=== PATIENT | male | born 1985 | race Caucasian/White ===

== ENCOUNTER 2020-06-14 07:06 | Emergency (ER) | payer OTHER ==
[~2020-06-14] VITALS: Ht 177.8 cm; Wt 65.9 kg
--- NOTE | 2020-06-14 07:51 | RAD ---
INDICATION: Testicular pain. COMPARISON: None. TECHNIQUE: Grayscale, color and spectral doppler ultrasound images obtained of the scrotum. FINDINGS: Right Testicle: 47 x 29 x 20 mm. Vascular flow is identified. Left Testicle: 44 x 28 x 21 mm. Vascular flow is identified. 25 x 18 x 12 mm right epididymal cyst. IMPRESSION: * Vascular flow is identified to the bilateral testicles. * Right epididymis cyst. Electronically signed by: Boogie Mcbride MD (06/14/2020 7:49 AM) [id number]
[2020-06-14 07:55] LABS: BACTERIA,URINE 0 /HPF (0-FEW); BILIRUBIN,URINE SMALL (NEG); CLARITY,URINE HAZY; COLOR,URINE AMBER; GLUCOSE,URINE NEG (NEG); NITRITE,URINE NEG (NEG); RBC,URINE >40 /HPF (0-2); UROBILINOGEN,URINE 0.2 mg/dL (0.2 mg/dL); WBC,URINE OCC /HPF (0-4)
--- NOTE | 2020-06-14 08:02 | PHYS DOC ---
Past History Past Medical History: No Pertinent History Past Surgical History: Other Additional Past Surgical Histo: vasectomy Additional Smoking Information: 1/2 pack/day Alcohol Use: Rarely General Adult EDM: Chief Complaint: TESTICULAR PAIN OR INJURY HPI: HPI: Patient is a 35 year old male who presents with left-sided testicular pain. Patient has noted hematuria since Friday but has not been in pain until this morning--prompting him to come to the ED today (he drove himself). [place] are positive for hematuria. He has been drinking copious amounts of water, and has taken OTC pain medication. Denies any penile or back pain, and has no pain with urination. Says that he has a left throbbing testicular pain that radiates to his abdomen and is worse depending on sitting position. He has had no new sexual partners recently. Reports having a "disc issue"in his back and says that he lives with 3/10 back pain. Reports current pain as 5/10. He has a history of passing a kidney stone at age 15. Denies fever, chills, any other sick symptoms at this time. Review of Systems: Review of Systems: Constitutional: Denies fever or chills Eyes: Denies redness or eye pain HENT: Denies nasal congestion or sore throat Respiratory: Denies cough or shortness of breath Cardiovascular: Denies chest pain or palpitations GI: Denies abdominal pain, nausea, or vomiting : Denies dysuria. Reports hematuria. Reports left testicular pain. Musculoskeletal: Denies back pain or joint pain Integument: Denies rash or skin lesions Neurologic: Denies headache, focal weakness or sensory changes Complete systems were reviewed and found to be within normal limits, except as documented in this note. Allergies: Allergies: Allergies Coded Allergies Type Severity Reaction Last Updated Verified No Known Drug Allergies 06/14/20 No Physical Exam: PE: Constitutional: Well developed, well nourished, no acute distress, non-toxic appearance HENT: Normocephalic, atraumatic Eyes: PERRL, EOMI, conjunctiva normal, no discharge Neck: Normal range of motion, no tenderness, supple Lungs & Thorax: No respiratory distress, equal chest rise and fall Abdomen: Soft, no tenderness Skin: Warm, dry, no erythema, no rash Back: No tenderness, no CVA tenderness Extremities: No tenderness, ROM intact, no edema Neurologic: Alert and oriented X 3, normal motor function, normal sensory function, no focal deficits noted Psychologic: Affect normal, judgment normal Current Patient Data: Vital Signs: Vital Signs Date Time Temp Pulse Resp B/P (MAP) Pulse Ox O2 Delivery O2 Flow Rate FiO2 06/14/20 07:08 97.7 66 16 125/64 (84) 95 EKG: EKG: [] Radiology/Procedures: Radiology/Procedures: PROCEDURE: TESTICULAR/SCROTUM INDICATION: Testicular pain. COMPARISON: None. TECHNIQUE: Grayscale, color and spectral doppler ultrasound images obtained of the scrotum. FINDINGS: Right Testicle: 47 x 29 x 20 mm. Vascular flow is identified. Left Testicle: 44 x 28 x 21 mm. Vascular flow is identified. 25 x 18 x 12 mm right epididymal cyst. IMPRESSION: * Vascular flow is identified to the bilateral testicles. * Right epididymis cyst. Electronically signed by: Boogie Mcbride MD (06/14/2020 7:49 AM) [id number] PROCEDURE: CT ABDOMEN PELVIS WO CONTRAST INDICATION: Reason: hematuria, eval for kidney stone / Spl. Instructions: / History: . COMPARISON: None. TECHNIQUE: Axial CT images obtained through the abdomen and pelvis without contrast. One or more of the following individualized dose reduction techniques were utilized for this examination: 1. Automated exposure control; 2. Adjustment of the mA and/or kV according to patient size; 3. Use of iterative reconstruction technique. FINDINGS: Abdominal aorta is not aneurysmal. No intrahepatic bile duct dilation. Limited assessment of the pancreas without contrast. Spleen is unremarkable. Mild left-sided hydronephrosis and hydroureter with 4 mm left distal ureter stone. Urinary bladder is partially distended. Nonobstructive right renal stone without hydronephrosis. No periappendiceal inflammatory changes. No dilated loops of bowel to suggest obstruction. Mild degenerative changes of spine. IMPRESSION: * Left-sided hydronephrosis and hydroureter with distal ureter stone. Electronically signed by: Boogie Mcbride MD (06/14/2020 8:51 AM) [id number] Heart Score: C/O Chest Pain: N/A Course & Med Decision Making: Course & Med Decision Making Pertinent Labs and Imaging studies reviewed. (See chart for details) Upon arrival to the ED gonorrhea/chlamydia labs, UA, CT testicular ultrasound were ordered. Ultrasound showed normal blood flow to both testes. UA showed hematuria without signs of infection. CT scan showed 4 mm distal ureter kidney stone with hydronephrosis. Patient received pain medication which resulted in symptomatic improvement. He was prescribed flowmax, nausea, and pain medication for use after discharge-- and well as education on kidney stones and dietary changes to prevent them in the future. Patient had no further questions or concerns. Patient stable for discharge with outpatient follow-up with PCP. Discussed findings and plan with patient, who acknowledges understanding and agreement. Dragon Disclaimer: Dragon Disclaimer: This electronic medical record was generated, in whole or in part, using a voice recognition dictation system. Departure Departure: Impression: Primary Impression: Kidney stone on left side Disposition: 01 DC HOME SELF CARE/HOMELESS Condition: STABLE Referrals: CHARISSE ORTIZ DO (PCP) Patient Instructions: Diet for Kidney Stones, Kidney Stones, [id number] Scripts Ondansetron (ONDANSETRON ODT) 4 Mg Tab.rapdis 1 TAB PO PRN Q6-8HRS PRN for NAUSEA, #16 TAB Prov: LINDA KOCH DO 06/14/20 Hydrocodone Bit/Acetaminophen (HYDROCODONE-APAP 5-325 ) 1 Each Tablet 0.5-1 TAB PO PRN Q6HRS PRN for PAIN, #10 TAB 0 Refills Prov: LINDA KOCH DO 06/14/20 Tamsulosin Hcl (FLOMAX) 0.4 Mg Cap.er.24h 1 CAP PO DAILY for Kidney stone, #7 CAP Prov: LINDA KOCH DO 06/14/20 LINDA KOCH DO Jun 14, 2020 08:02
[2020-06-14] MEDS ORDERED: KETOROLAC 15 MG/ML VIAL. IVP ONE (08:15)
[2020-06-14] MEDS ORDERED: KETOROLAC 30 MG/ML VIAL. IM ONE (08:15)
[2020-06-14] MEDS ORDERED: IV NORMAL SALINE 1,000ML 1,000 ML IV ONE (08:15)
[2020-06-14 08:27] VITALS: BP 113/67
--- NOTE | 2020-06-14 08:53 | RAD ---
INDICATION: Reason: hematuria, eval for kidney stone / Spl. Instructions: / History: . COMPARISON: None. TECHNIQUE: Axial CT images obtained through the abdomen and pelvis without contrast. One or more of the following individualized dose reduction techniques were utilized for this examinat ion: 1. Automated exposure control; 2. Adjustment of the mA and/or kV according to patient size; 3 . Use of iterative reconstruction technique. FINDINGS: Abdominal aorta is not aneurysmal. No intrahepatic bile duct dilation. Limited assessment of the pancreas without contrast. Spleen is unremarkable. Mild left-sided hydronephrosis and hydroureter with 4 mm left distal ureter stone. Urinary bladder is partially distended. Nonobstructive right renal stone without hydronephrosis. No periappendiceal inflammatory changes. No dilated loops of bowel to suggest obstruction. Mild degenerative changes of spine. IMPRESSION: * Left-sided hydronephrosis and hydroureter with distal ureter stone. Electronically signed by: Boogie Mcbride MD (06/14/2020 8:51 AM) [id number]
[2020-06-14] MEDS ORDERED: TAMS0.4C97 PO (09:07)
[2020-06-14] MEDS ORDERED: ONDA4TAB12 PO (09:07)
[2020-06-14] MEDS ORDERED: HYDR-2155 PO (09:07)
[2020-06-14] MEDS ORDERED: TAMSULOSIN 0.4 MG CAP.ER.24H. PO ONE (09:15)
== END 2020-06-14 09:19 | disposition home or self-care (01) ==
LOC: ER 07:06
DX: N13.2 Hydronephrosis with renal and ureteral calculous obstruction (principal); F17.200 Nicotine dependence, unspecified, uncomplicated
CPT/HCPCS: 74176; 76870; 81001; 87491; 87591; 96372; 99285; J1885; 36415